=== PATIENT | female | born 1935 | race Caucasian/White ===

== ENCOUNTER 2019-02-24 16:03 | Emergency (ER) | payer SELFPAY ==
[~2019-02-24] VITALS: Ht 157.5 cm; Wt 57.2 kg
[2019-02-24] MEDS ORDERED: LEVOTHYROXINE (16:13)
[2019-02-24] MEDS ORDERED: COREG (16:13)
--- NOTE | 2019-02-24 16:20 | NUR ---
Patient does not wish to proceed with medical care recommended by . Patient given information related to possible complications, up to and including , which could occur as a result of leaving the hospital at this time. Patient verbalizes understanding of risks involved due to leaving against medical advice. Patient has signed AMA form. DMV form ([id number] [facility]) was filed by .
--- NOTE | 2019-02-24 16:35 | NUR ---
Patient is now waiting in the ER waiting room for her taxi ride, [id number].
== END 2019-02-24 16:35 | disposition left against medical advice (07) ==
LOC: ER 16:06
DX: R55 Syncope and collapse (principal); E03.9 Hypothyroidism, unspecified; Z95.0 Presence of cardiac pacemaker; Z88.8 Allergy status to other drugs, medicaments and biological substances; Z79.899 Other long term (current) drug therapy; V43.92XA Unspecified car occupant injured in collision with other type car in traffic accident, initial encounter; Y93.89 Activity, other specified; Y92.89 Other specified places as the place of occurrence of the external cause; Y99.8 Other external cause status
CPT/HCPCS: 93005; A4663

== ENCOUNTER 2019-11-27 11:56 | Inpatient (IN) | payer MEDICARE, OTHER ==
[~2019-11-27] VITALS: Ht 157.5 cm; Wt 53.5 kg
[~2019-11-27 11:56] MED LIST: COREG PO; LEVOTHYROXINE PO
[2019-11-27 13:47] LABS: BASOPHILS % (AUTO) 0.3 % (0.0-2.0); EOSINOPHILS # (AUTO) 0.2 K/uL (0.0-0.7); EOSINOPHILS % (AUTO) 3.4 % (0.0-7.0); HEMATOCRIT 30.8 % (31.2-41.9); HEMOGLOBIN 9.9 g/dL (10.9-14.3); LYMPHOCYTES # (AUTO) 1.1 K/uL (20.0-40.0); LYMPHOCYTES % (AUTO) 18.6 % (20.5-51.5); MEAN CORPUSCULAR HEMOGLOBIN 29.3 uug (24.7-32.8); MEAN CORPUSCULAR HGB CONC 32 g/dL (32.3-35.6); MEAN CORPUSCULAR VOLUME 91.5 fL (75.5-95.3); MONOCYTES # (AUTO) 0.7 K/uL (2.0-10.0); MONOCYTES % (AUTO) 12.4 % (0.0-11.0); NEUTROPHILS # (AUTO) 3.9 K/uL (1.8-8.9); NEUTROPHILS % (AUTO) 65.3 % (38.5-71.5); PLATELET COUNT (AUTO) 165 K/uL (179-408); RED BLOOD CELL COUNT(AUTO) 3.37 MIL/uL (3.63-4.92)
[2019-11-27 13:55] LABS: CREATININE 0.9 mg/dL (0.6-1.3); POTASSIUM 4.8 mmol/L (3.5-5.1)
[2019-11-27 14:01] LABS: BILIRUBIN,DIRECT 0.1 mg/dL (0.0-0.2); BILIRUBIN,TOTAL 0.4 mg/dL (0.2-1.0); TOTAL PROTEIN, SERUM 6.8 g/dL (6.4-8.2)
[2019-11-27] MEDS ORDERED: PANTOPRAZOLE SODIUM 40 MG VIAL IV ONE (15:00)
[2019-11-27] MEDS ORDERED: ASPIRIN EC 325 MG TABLET.DR PO ONE (15:15)
[2019-11-27 16:41] VITALS: BP 102/59
[2019-11-27] MEDS ORDERED: HYDROCODONE/APAP 5-325MG TABLET PO PRN (17:15)
[2019-11-27] MEDS ORDERED: ZOLPIDEM 5 MG TABLET PO PRN (17:15)
[2019-11-27] MEDS ORDERED: ACETAMINOPHEN 325 MG TABLET PO PRN (17:15)
[2019-11-27] MEDS ORDERED: ONDANSETRON 4 MG/2 ML VIAL IV PRN (17:15)
[2019-11-27] MEDS ORDERED: ALBUTEROL SULFATE 2.5 MG/3 ML NEBU NEB PRN (17:15)
[2019-11-27] MEDS ORDERED: IV NORMAL SALINE 250 ML IV ONE (17:38)
[2019-11-27] MEDS ORDERED: SWABABLE VALVE TRANSFER SET EA MC ONE (17:38)
[2019-11-27] MEDS ORDERED: IOHEXOL 300MG/ML 100 ML INFUS..BTL ONE (17:38)
[2019-11-27 20:30] VITALS: BP 95/56
[2019-11-27] MEDS: FUROSEMIDE 20 MG/2 ML VIAL IV SCH (21:37)
[2019-11-28] VITALS: BP 105/75
[2019-11-28 04:00] VITALS: BP 115/59
[2019-11-28 06:51] LABS: BASOPHILS % (AUTO) 0.5 % (0.0-2.0); EOSINOPHILS # (AUTO) 0.2 K/uL (0.0-0.7); EOSINOPHILS % (AUTO) 4.4 % (0.0-7.0); HEMATOCRIT 30.1 % (31.2-41.9); HEMOGLOBIN 9.7 g/dL (10.9-14.3); LYMPHOCYTES # (AUTO) 1.2 K/uL (20.0-40.0); LYMPHOCYTES % (AUTO) 21.2 % (20.5-51.5); MEAN CORPUSCULAR HEMOGLOBIN 29.4 uug (24.7-32.8); MEAN CORPUSCULAR HGB CONC 32 g/dL (32.3-35.6); MEAN CORPUSCULAR VOLUME 90.9 fL (75.5-95.3); MONOCYTES # (AUTO) 0.7 K/uL (2.0-10.0); MONOCYTES % (AUTO) 12.1 % (0.0-11.0); NEUTROPHILS # (AUTO) 3.5 K/uL (1.8-8.9); NEUTROPHILS % (AUTO) 61.8 % (38.5-71.5); PLATELET COUNT (AUTO) 160 K/uL (179-408); RED BLOOD CELL COUNT(AUTO) 3.31 MIL/uL (3.63-4.92); WHITE BLOOD COUNT (AUTO) 5.6 K/uL (3.8-11.8)
[2019-11-28] MEDS ORDERED: PANTOPRAZOLE SODIUM 40 MG TABLET.DR PO SCH (07:00)
[2019-11-28 07:01] LABS: BILIRUBIN,TOTAL 0.3 mg/dL (0.2-1.0); MAGNESIUM 2.1 mg/dL (1.8-2.4); PHOSPHOROUS 3.3 mg/dL (2.5-4.9); POTASSIUM 4.1 mmol/L (3.5-5.1); TOTAL PROTEIN, SERUM 6.5 g/dL (6.4-8.2)
[2019-11-28 07:12] LABS: THYROID STIMULATING HORMONE 5.799 mIU/mL (0.358-3.740)
[2019-11-28] MEDS: FUROSEMIDE 20 MG/2 ML VIAL IV SCH (08:52)
[2019-11-28] MEDS ORDERED: ASPIRIN EC 81 MG TABLET.DR PO SCH ×2 (09:00→17:00)
[2019-11-28] MEDS ORDERED: LEVOTHYROXINE PO SCH (09:00)
[2019-11-28 11:46] VITALS: BP 96/54
[2019-11-28] MEDS: LEVOTHYROXINE SODIUM 88 MCG TABLET PO SCH (11:53)
[2019-11-28 16:02] VITALS: BP 102/60
[2019-11-28] MEDS: COLCHICINE 0.6 MG TABLET PO SCH (16:14)
[2019-11-28] MEDS: ASPIRIN EC 325 MG TABLET.DR PO SCH (16:19)
[2019-11-28] MEDS: PANTOPRAZOLE SODIUM 40 MG TABLET.DR PO SCH (16:20)
[2019-11-28 20:00] VITALS: BP 99/63
[2019-11-28] MEDS: FUROSEMIDE 40 MG/4 ML VIAL IVP SCH ×2 (20:29→21:00)
[2019-11-28] MEDS ORDERED: FUROSEMIDE 20 MG/2 ML VIAL IV SCH (21:00)
[2019-11-28] MEDS: TEMAZEPAM 15 MG CAPSULE PO PRN (23:13)
[2019-11-29] VITALS: BP 135/67
[2019-11-29 05:00] VITALS: BP 132/59
[2019-11-29] MEDS: LEVOTHYROXINE SODIUM 88 MCG TABLET PO SCH (06:00)
[2019-11-29] MEDS: HYDROCODONE/APAP 10-325 MG TABLET PO PRN (06:00)
[2019-11-29] MEDS: PANTOPRAZOLE SODIUM 40 MG TABLET.DR PO SCH ×2 (06:00→17:24)
[2019-11-29 06:29] LABS: BASOPHILS % (AUTO) 0.5 % (0.0-2.0); EOSINOPHILS # (AUTO) 0.3 K/uL (0.0-0.7); EOSINOPHILS % (AUTO) 5.5 % (0.0-7.0); HEMATOCRIT 32.4 % (31.2-41.9); HEMOGLOBIN 10.3 g/dL (10.9-14.3); LYMPHOCYTES # (AUTO) 1.3 K/uL (20.0-40.0); LYMPHOCYTES % (AUTO) 20.5 % (20.5-51.5); MEAN CORPUSCULAR HEMOGLOBIN 28.4 uug (24.7-32.8); MEAN CORPUSCULAR HGB CONC 32 g/dL (32.3-35.6); MEAN CORPUSCULAR VOLUME 89.7 fL (75.5-95.3); MONOCYTES # (AUTO) 0.7 K/uL (2.0-10.0); MONOCYTES % (AUTO) 10.9 % (0.0-11.0); NEUTROPHILS # (AUTO) 3.9 K/uL (1.8-8.9); NEUTROPHILS % (AUTO) 62.6 % (38.5-71.5); PLATELET COUNT (AUTO) 192 K/uL (179-408); RED BLOOD CELL COUNT(AUTO) 3.61 MIL/uL (3.63-4.92); WHITE BLOOD COUNT (AUTO) 6.3 K/uL (3.8-11.8)
[2019-11-29 06:38] LABS: BILIRUBIN,DIRECT 0.1 mg/dL (0.0-0.2); BILIRUBIN,TOTAL 0.4 mg/dL (0.2-1.0); PHOSPHOROUS 3.1 mg/dL (2.5-4.9); POTASSIUM 4.1 mmol/L (3.5-5.1); TOTAL PROTEIN, SERUM 6.6 g/dL (6.4-8.2)
[2019-11-29] MEDS: FUROSEMIDE 40 MG/4 ML VIAL IVP SCH ×3 (09:00→20:38)
[2019-11-29] MEDS: ASPIRIN EC 325 MG TABLET.DR PO SCH ×2 (09:32→17:24)
[2019-11-29] MEDS: COLCHICINE 0.6 MG TABLET PO SCH (09:32)
[2019-11-29 11:49] VITALS: BP 98/47
[2019-11-29 12:06] LABS: A/G RATIO 0.8 (0.7-1.7); ALBUMIN 2.6 g/dL (2.9-4.4); ALPHA-1-GLOBULIN 0.4 g/dL (0.0-0.4); ALPHA-2-GLOBULIN 0.8 g/dL (0.4-1.0); GAMMA GLOBULIN 0.9 g/dL (0.4-1.8); GLOBULIN, TOTAL 3.1 g/dL (2.2-3.9); M-SPIKE Not Observed g/dL (Not Observed)
[2019-11-29 15:34] VITALS: BP 135/78
[2019-11-29 20:12] VITALS: BP 114/59
[2019-11-30 00:08] VITALS: BP 108/54
[2019-11-30 04:00] VITALS: BP 98/44
[2019-11-30] MEDS: PANTOPRAZOLE SODIUM 40 MG TABLET.DR PO SCH ×2 (06:17→17:05)
[2019-11-30] MEDS: LEVOTHYROXINE SODIUM 88 MCG TABLET PO SCH (06:17)
[2019-11-30 06:21] LABS: BASOPHILS % (AUTO) 0.3 % (0.0-2.0); EOSINOPHILS # (AUTO) 0.4 K/uL (0.0-0.7); EOSINOPHILS % (AUTO) 5.3 % (0.0-7.0); HEMATOCRIT 30.5 % (31.2-41.9); LYMPHOCYTES % (AUTO) 15.6 % (20.5-51.5); MEAN CORPUSCULAR HEMOGLOBIN 29.4 uug (24.7-32.8); MEAN CORPUSCULAR HGB CONC 33 g/dL (32.3-35.6); MEAN CORPUSCULAR VOLUME 89.9 fL (75.5-95.3); MONOCYTES # (AUTO) 0.8 K/uL (2.0-10.0); MONOCYTES % (AUTO) 11.4 % (0.0-11.0); NEUTROPHILS # (AUTO) 4.5 K/uL (1.8-8.9); NEUTROPHILS % (AUTO) 67.4 % (38.5-71.5); PLATELET COUNT (AUTO) 215 K/uL (179-408); WHITE BLOOD COUNT (AUTO) 6.7 K/uL (3.8-11.8)
[2019-11-30 06:49] LABS: BILIRUBIN,DIRECT 0.1 mg/dL (0.0-0.2); BILIRUBIN,TOTAL 0.4 mg/dL (0.2-1.0); CREATININE 1.3 mg/dL (0.6-1.3); PHOSPHOROUS 4.3 mg/dL (2.5-4.9); POTASSIUM 4.4 mmol/L (3.5-5.1); TOTAL PROTEIN, SERUM 6.5 g/dL (6.4-8.2)
[2019-11-30] MEDS ORDERED: FUROSEMIDE 40 MG/4 ML VIAL IVP SCH (09:00)
[2019-11-30] MEDS: FUROSEMIDE 20 MG/2 ML VIAL IVP SCH ×2 (09:04→20:51)
[2019-11-30] MEDS: ASPIRIN EC 325 MG TABLET.DR PO SCH ×2 (09:04→17:05)
[2019-11-30] MEDS: COLCHICINE 0.6 MG TABLET PO SCH (09:04)
[2019-11-30 11:30] VITALS: BP 107/45
[2019-11-30 16:00] VITALS: BP 112/49
[2019-11-30 19:58] VITALS: BP 107/47
[2019-11-30] MEDS: ATORVASTATIN 20 MG TABLET PO SCH (20:51)
[2019-11-30 21:36] LABS: *BILIRUBIN,URIN NEGATIVE (NEGATIVE); *BLOOD, URINE NEGATIVE (NEGATIVE); *COLOR,URINE YELLOW (YELLOW); *KETONES,URINE NEGATIVE (NEGATIVE); *UROBILINOGEN,URINE 0.2 E.U./dl (NORMAL); LEUKOCYTE ESTERASE ,URINE 2+ (NEGATIVE); NITRITE, URINE NEGATIVE (NEGATIVE); UGLUCOSE NEGATIVE (NEGATIVE)
[2019-11-30 21:45] LABS: *CLARITY,URINE CLOUDY (CLEAR)
[2019-11-30 21:47] LABS: *CREATININE,URINE 94.7 mg/dL (30-125); *URINE TOTAL PROTEIN RANDOM 15.6 mg/dL (<150/24HR)
[2019-11-30 22:09] LABS: BACTERIA,URINE MODERATE /HPF (NONE SEEN); SQUAMOUS EPITHELIAL CELL,UR MODERATE /HPF (NONE SEEN); WBC,URINE 50-80 /HPF (0-3)
[2019-12-01 00:03] VITALS: BP 99/42
[2019-12-01 04:05] VITALS: BP 107/44
[2019-12-01] MEDS: LEVOTHYROXINE SODIUM 88 MCG TABLET PO SCH (06:35)
[2019-12-01] MEDS: PANTOPRAZOLE SODIUM 40 MG TABLET.DR PO SCH ×2 (06:35→17:25)
[2019-12-01 07:29] LABS: BILIRUBIN,TOTAL 0.4 mg/dL (0.2-1.0); CREATININE 1.2 mg/dL (0.6-1.3); PHOSPHOROUS 4.2 mg/dL (2.5-4.9); POTASSIUM 3.5 mmol/L (3.5-5.1); TOTAL PROTEIN, SERUM 6.4 g/dL (6.4-8.2)
[2019-12-01 07:33] LABS: BASOPHILS % (AUTO) 0.3 % (0.0-2.0); EOSINOPHILS # (AUTO) 0.4 K/uL (0.0-0.7); EOSINOPHILS % (AUTO) 5.6 % (0.0-7.0); HEMATOCRIT 30.2 % (31.2-41.9); HEMOGLOBIN 9.9 g/dL (10.9-14.3); LYMPHOCYTES # (AUTO) 1.1 K/uL (20.0-40.0); LYMPHOCYTES % (AUTO) 14.8 % (20.5-51.5); MEAN CORPUSCULAR HEMOGLOBIN 29.5 uug (24.7-32.8); MEAN CORPUSCULAR HGB CONC 33 g/dL (32.3-35.6); MEAN CORPUSCULAR VOLUME 89.8 fL (75.5-95.3); MONOCYTES # (AUTO) 0.8 K/uL (2.0-10.0); MONOCYTES % (AUTO) 11.5 % (0.0-11.0); NEUTROPHILS # (AUTO) 4.9 K/uL (1.8-8.9); NEUTROPHILS % (AUTO) 67.8 % (38.5-71.5); PLATELET COUNT (AUTO) 210 K/uL (179-408); RED BLOOD CELL COUNT(AUTO) 3.37 MIL/uL (3.63-4.92); WHITE BLOOD COUNT (AUTO) 7.2 K/uL (3.8-11.8)
[2019-12-01] MEDS ORDERED: POTASSIUM CHLORIDE 20 MEQ POWDER PACKET PO ONE (08:30)
[2019-12-01] MEDS: COLCHICINE 0.6 MG TABLET PO SCH (09:03)
[2019-12-01] MEDS: ASPIRIN EC 325 MG TABLET.DR PO SCH ×2 (09:03→17:25)
[2019-12-01] MEDS: CARVEDILOL 3.125 MG TABLET PO SCH ×2 (10:09→17:33)
[2019-12-01] MEDS: FUROSEMIDE 40 MG TABLET PO SCH (10:09)
[2019-12-01 11:29] VITALS: BP 112/57
[2019-12-01 15:19] VITALS: BP 117/49
[2019-12-01 17:32] VITALS: BP 111/58
[2019-12-01 20:05] VITALS: BP 119/55
[2019-12-01] MEDS: AMOXICILLIN-CLAVUL 500-125MG TABLET PO SCH (20:13)
[2019-12-01] MEDS: ATORVASTATIN 20 MG TABLET PO SCH (20:13)
[2019-12-01] MEDS: FERROUS GLUCONATE 324 MG TABLET PO SCH (20:22)
[2019-12-01] MEDS ORDERED: CEphaleXIN 250 MG CAPSULE PO SCH (22:00)
[2019-12-01] MEDS ORDERED: CEphaleXIN 500 MG CAPSULE PO SCH (22:00)
[2019-12-02 04:00] VITALS: BP 105/54
[2019-12-02] MEDS: PANTOPRAZOLE SODIUM 40 MG TABLET.DR PO SCH ×2 (06:22→16:57)
[2019-12-02] MEDS: LEVOTHYROXINE SODIUM 88 MCG TABLET PO SCH (06:22)
[2019-12-02 06:38] LABS: BASOPHILS % (AUTO) 0.3 % (0.0-2.0); EOSINOPHILS # (AUTO) 0.3 K/uL (0.0-0.7); EOSINOPHILS % (AUTO) 3.5 % (0.0-7.0); HEMOGLOBIN 9.8 g/dL (10.9-14.3); LYMPHOCYTES # (AUTO) 1.1 K/uL (20.0-40.0); LYMPHOCYTES % (AUTO) 14.8 % (20.5-51.5); MEAN CORPUSCULAR HEMOGLOBIN 29.4 uug (24.7-32.8); MEAN CORPUSCULAR HGB CONC 33 g/dL (32.3-35.6); MEAN CORPUSCULAR VOLUME 90.3 fL (75.5-95.3); MONOCYTES # (AUTO) 0.8 K/uL (2.0-10.0); MONOCYTES % (AUTO) 10.8 % (0.0-11.0); NEUTROPHILS # (AUTO) 5.2 K/uL (1.8-8.9); NEUTROPHILS % (AUTO) 70.6 % (38.5-71.5); PLATELET COUNT (AUTO) 224 K/uL (179-408); RED BLOOD CELL COUNT(AUTO) 3.32 MIL/uL (3.63-4.92); WHITE BLOOD COUNT (AUTO) 7.3 K/uL (3.8-11.8)
[2019-12-02 07:39] LABS: CARBON DIOXIDE 31 mmol/L (21-32); CHLORIDE 104 mmol/L (98-107); CREATININE 1.3 mg/dL (0.6-1.3); FERRITIN 68 ng/mL (8-252); GLUCOSE 90 mg/dL (74-106); MAGNESIUM 2.2 mg/dL (1.8-2.4); PHOSPHOROUS 3.4 mg/dL (2.5-4.9); POTASSIUM 4.2 mmol/L (3.5-5.1); UREA NITROGEN, BLOOD 50 mg/dL (7-20)
[2019-12-02] MEDS: ASPIRIN EC 325 MG TABLET.DR PO SCH ×2 (08:45→16:57)
[2019-12-02] MEDS: CARVEDILOL 3.125 MG TABLET PO SCH ×2 (08:46→17:03)
[2019-12-02] MEDS: FUROSEMIDE 40 MG TABLET PO SCH (08:46)
[2019-12-02] MEDS: AMOXICILLIN-CLAVUL 500-125MG TABLET PO SCH ×2 (08:46→22:05)
[2019-12-02] MEDS: COLCHICINE 0.6 MG TABLET PO SCH (08:46)
[2019-12-02 11:06] VITALS: BP 113/49
[2019-12-02] MEDS: FERROUS GLUCONATE 324 MG TABLET PO SCH (11:52)
[2019-12-02 14:15] LABS: *OCCULT BLOOD STOOL NEGATIVE (NEGATIVE)
[2019-12-02 15:17] VITALS: BP 112/49
[2019-12-02 17:05] VITALS: BP 125/68
[2019-12-02 20:00] VITALS: BP 112/59
[2019-12-02] MEDS: ATORVASTATIN 20 MG TABLET PO SCH (22:04)
[2019-12-03 06:00] VITALS: BP 125/64
[2019-12-03] MEDS: PANTOPRAZOLE SODIUM 40 MG TABLET.DR PO SCH ×2 (06:15→16:31)
[2019-12-03] MEDS: LEVOTHYROXINE SODIUM 88 MCG TABLET PO SCH (06:15)
[2019-12-03 09:12] LABS: BASOPHILS % (AUTO) 0.4 % (0.0-2.0); EOSINOPHILS # (AUTO) 0.2 K/uL (0.0-0.7); EOSINOPHILS % (AUTO) 2.8 % (0.0-7.0); HEMATOCRIT 36.1 % (31.2-41.9); HEMOGLOBIN 11.9 g/dL (10.9-14.3); LYMPHOCYTES # (AUTO) 0.9 K/uL (20.0-40.0); LYMPHOCYTES % (AUTO) 10.2 % (20.5-51.5); MEAN CORPUSCULAR HEMOGLOBIN 29.8 uug (24.7-32.8); MEAN CORPUSCULAR HGB CONC 33 g/dL (32.3-35.6); MEAN CORPUSCULAR VOLUME 90.7 fL (75.5-95.3); MONOCYTES # (AUTO) 0.9 K/uL (2.0-10.0); MONOCYTES % (AUTO) 9.7 % (0.0-11.0); NEUTROPHILS # (AUTO) 6.9 K/uL (1.8-8.9); NEUTROPHILS % (AUTO) 76.9 % (38.5-71.5); PLATELET COUNT (AUTO) 260 K/uL (179-408); RED BLOOD CELL COUNT(AUTO) 3.98 MIL/uL (3.63-4.92)
[2019-12-03] MEDS: FERROUS GLUCONATE 324 MG TABLET PO SCH (09:25)
[2019-12-03] MEDS: AMOXICILLIN-CLAVUL 500-125MG TABLET PO SCH ×2 (09:25→21:07)
[2019-12-03] MEDS: COLCHICINE 0.6 MG TABLET PO SCH (09:25)
[2019-12-03] MEDS: FUROSEMIDE 40 MG TABLET PO SCH (09:25)
[2019-12-03] MEDS: CARVEDILOL 3.125 MG TABLET PO SCH ×2 (09:26→16:31)
[2019-12-03] MEDS: ASPIRIN EC 325 MG TABLET.DR PO SCH ×2 (09:26→16:30)
[2019-12-03 09:41] LABS: CARBON DIOXIDE 34 mmol/L (21-32); CHLORIDE 104 mmol/L (98-107); GLUCOSE 85 mg/dL (74-106); MAGNESIUM 2.2 mg/dL (1.8-2.4); POTASSIUM 4.1 mmol/L (3.5-5.1); UREA NITROGEN, BLOOD 44 mg/dL (7-18)
[2019-12-03] MEDS: HYDROCODONE/APAP 10-325 MG TABLET PO PRN ×2 (10:05→17:46)
[2019-12-03 11:32] LABS: CREATININE 1.1 mg/dL (0.6-1.3)
[2019-12-03 11:55] VITALS: BP 125/51
[2019-12-03 15:14] VITALS: BP 111/49
[2019-12-03] MEDS ORDERED: FURO40TA5 PO (16:18)
[2019-12-03] MEDS ORDERED: ATOR20TA PO (16:18)
[2019-12-03] MEDS ORDERED: CARV3.122 PO (16:18)
[2019-12-03] MEDS ORDERED: Amoxicillin-Clav 500-125MG Tab PO (16:18)
[2019-12-03] MEDS ORDERED: Colchicine PO (16:18)
[2019-12-03] MEDS ORDERED: ASPI-610 PO (16:18)
[2019-12-03 20:30] VITALS: BP 115/54
[2019-12-03] MEDS: TEMAZEPAM 15 MG CAPSULE PO PRN (21:07)
[2019-12-03] MEDS: ATORVASTATIN 20 MG TABLET PO SCH (21:07)
[2019-12-04 05:37] VITALS: BP 112/56
[2019-12-04] MEDS: PANTOPRAZOLE SODIUM 40 MG TABLET.DR PO SCH ×2 (06:54→17:54)
[2019-12-04] MEDS: LEVOTHYROXINE SODIUM 88 MCG TABLET PO SCH (06:54)
[2019-12-04] MEDS: FERROUS GLUCONATE 324 MG TABLET PO SCH (09:12)
[2019-12-04] MEDS: ASPIRIN EC 325 MG TABLET.DR PO SCH ×2 (09:12→17:57)
[2019-12-04] MEDS: AMOXICILLIN-CLAVUL 500-125MG TABLET PO SCH (09:12)
[2019-12-04] MEDS: COLCHICINE 0.6 MG TABLET PO SCH (09:12)
[2019-12-04] MEDS: CARVEDILOL 3.125 MG TABLET PO SCH ×2 (09:13→18:00)
[2019-12-04] MEDS: FUROSEMIDE 40 MG TABLET PO SCH (09:13)
[2019-12-04 11:37] VITALS: BP 132/56
[2019-12-04 12:14] LABS: ABG BASE EXCESS 5.9 mmol/L; ABG HCO3 29.8 mmol/L; ABG PCO2 40.4 mmHg (35.0-45.0); ABG PH 7.485 (7.350-7.450); ABG PO2 60.7 mmHg (75.0-100.0); ABG SITE RIGHT BRACHIAL; ABG TOTAL HEMOGLOBIN 10.3 G/dL (12.0-16.0); MetHb 0.2 % (0.0-1.5); O2Hb 88.2 % (94.0-97.0); VENT MODE room air
[2019-12-04 15:39] VITALS: BP 137/55
[2019-12-04] MEDS: ATORVASTATIN 20 MG TABLET PO SCH (20:31)
[2019-12-04 20:34] VITALS: BP 120/52
[2019-12-05 05:10] VITALS: BP 116/41
[2019-12-05] MEDS: LEVOTHYROXINE SODIUM 88 MCG TABLET PO SCH (06:21)
[2019-12-05] MEDS: PANTOPRAZOLE SODIUM 40 MG TABLET.DR PO SCH ×2 (06:21→17:56)
[2019-12-05] MEDS: FERROUS GLUCONATE 324 MG TABLET PO SCH (08:20)
[2019-12-05] MEDS: CARVEDILOL 3.125 MG TABLET PO SCH ×2 (08:20→17:57)
[2019-12-05] MEDS: ASPIRIN EC 325 MG TABLET.DR PO SCH ×2 (08:20→17:56)
[2019-12-05] MEDS: COLCHICINE 0.6 MG TABLET PO SCH (08:20)
[2019-12-05] MEDS: FUROSEMIDE 40 MG TABLET PO SCH (08:20)
[2019-12-05 11:42] VITALS: BP 99/41
[2019-12-05 12:30] VITALS: BP 90/42
[2019-12-05 15:48] VITALS: BP 91/46
[2019-12-05 17:57] VITALS: BP 94/44
== END 2019-12-05 19:30 | disposition home health service (06) | DRG 280 ==
LOC: ER 11:56 → TELE3 15:46 → MEDSURG3 12-01 08:48
PROVIDERS: ADMIT Internal Medicine; ATTEND Internal Medicine
DX: I31.9 Disease of pericardium, unspecified (principal); I50.21 Acute systolic (congestive) heart failure; I21.A1 Myocardial infarction type 2; N17.0 Acute kidney failure with tubular necrosis; J18.1 Lobar pneumonia, unspecified organism; E43 Unspecified severe protein-calorie malnutrition; M80.80XA Other osteoporosis with current pathological fracture, unspecified site, initial encounter for fracture; J98.11 Atelectasis; N39.0 Urinary tract infection, site not specified; I42.9 Cardiomyopathy, unspecified; I38 Endocarditis, valve unspecified; I31.3 Pericardial effusion (noninflammatory); T50.2X5A Adverse effect of carbonic-anhydrase inhibitors, benzothiadiazides and other diuretics, initial encounter; T50.8X5A Adverse effect of diagnostic agents, initial encounter; Y92.238 Other place in hospital as the place of occurrence of the external cause; E03.9 Hypothyroidism, unspecified; I11.0 Hypertensive heart disease with heart failure; K80.20 Calculus of gallbladder without cholecystitis without obstruction; Z90.13 Acquired absence of bilateral breasts and nipples; H91.90 Unspecified hearing loss, unspecified ear; T45.1X5A Adverse effect of antineoplastic and immunosuppressive drugs, initial encounter; Y92.89 Other specified places as the place of occurrence of the external cause; Z92.3 Personal history of irradiation; D64.9 Anemia, unspecified; Z85.3 Personal history of malignant neoplasm of breast; Z95.0 Presence of cardiac pacemaker; Z91.81 History of falling; R93.7 Abnormal findings on diagnostic imaging of other parts of musculoskeletal system; I08.3 Combined rheumatic disorders of mitral, aortic and tricuspid valves; M41.9 Scoliosis, unspecified; M19.90 Unspecified osteoarthritis, unspecified site; K64.9 Unspecified hemorrhoids; I25.10 Atherosclerotic heart disease of native coronary artery without angina pectoris; K76.1 Chronic passive congestion of liver; E86.0 Dehydration; D69.6 Thrombocytopenia, unspecified
CPT/HCPCS: 36415; 36600; 70030-TC; 71045; 71101; 71260; 76705; 78306; 82378; 83550; 83735; 84100; 84155; 84156; 84165; 84300; 84443; 85025; 86300; 87086; 93005; 93307; A4663; A9503; G0378; J1940; J3490; J7050; Q9967